=== PATIENT | male | born 1965 | race Caucasian/White ===

== ENCOUNTER 2016-10-28 12:15 | Emergency (ER) | payer BC, OTHER ==
[2016-10-28 12:24] VITALS: RESP 16; O2SAT 98
--- NOTE | 2016-10-28 13:19 | EDPHY ---
H & P Stated Complaint: +SOB & confusion ?Mast cell disorder HPI/ROS: CHIEF COMPLAINT: Possible allergic reaction HISTORY OF PRESENT ILLNESS: patient reports feeling hot and warm sensations of the skin, short of breath, confusion, itching. He says the symptoms are consistent with his previous reactions to unknown allergens. He has been under the care of an rail engineer /floral artist Dr. Dobbins for this. He says the symptoms started earlier today and have steadily improved since onset. Did not ever have any difficulty breathing or swelling of the mouth, lips or tongue. He had no chest pain. He did have some shortness of breath with this. He did not take anything and that has significantly improved at this time. He is requesting that we draw laboratory studies at the request of his floral artist. He does not want any medical intervention or other laboratory studies. He is resting comfortably with no active complaints. Has been under his care for 1 year without definitive diagnosis but is being worked up for mast cell disorder. No other associated complaints or modifying factors. REVIEW OF SYSTEMS: Ten systems reviewed and are negative unless otherwise noted in the HPI EXAMINATION General Appearance: Alert, no distress Head: normocephalic, atraumatic Eyes: Pupils equal and round, no conjunctival pallor or injection ENT, Mouth: Mucous membranes moist . Uvula midline. There is no edema of the lips, tongue or pharynx. The airway is patent. No erythema. Neck: Normal inspection, supple, non-tender Respiratory: Lungs are clear to auscultation . No wheezing, rhonchi or crackles Cardiovascular: Regular rate and rhythm. No murmur Gastrointestinal: Abdomen is soft and nontender Back: non-tender, no bony abnormalities Neurological: A&O, nonfocal, normal gait Skin: Warm and dry, no rash. No urticaria. No petechiae or purpura Extremities: Nontender, no pedal edema Psychiatric: Mood and affect normal DIFFERENTIAL DIAGNOSES: Including but not limited to muscle disorder, histamine response, acute allergic reaction, MDM: 1:20pm symptoms consistent with patient's previous allergic reactions. He has no outward signs of reaction. He has no edema or angioedema. His airway is patent. Vital signs are stable. He has declined Benadryl, Pepcid and steroids as he has those at home. He would just like the laboratory studies drawn though we have ordered. Would like to follow up his floral artist. Dr. Arana and I both discussed the case with his quick mixer operator, Dr. Dobbins. he said that he will be happy to follow up on the laboratory studies. The patient has been instructed to parental laboratory studies when they returned to take him to his appointment in 1-2 weeks. He is discharged home in stable condition with normal vital signs and no outward signs of allergic reaction. SUPERVISION:Patient was evaluated in conjunction with the supervising physician. Please see their note for details. Source: Patient Exam Limitations: No limitations - Personal History Current Tetanus/Diphtheria Vaccine: Unsure Current Tetanus Diphtheria and Acellular Pertussis (TDAP): Unsure - Medical/Surgical History Hx Asthma: No Hx Chronic Respiratory Disease: No Hx Diabetes: No Hx Cardiac Disease: No Hx Renal Disease: No Hx Cirrhosis: No Hx Alcoholism: No Hx HIV/AIDS: No Hx Splenectomy or Spleen Trauma: No Other PMH: Ortho surgeries, auto-immune problems - Social History Smoking Status: Never smoked Constitutional: Initial Vital Signs Temperature (C) 97.5 F 10/28/16 12:22 Heart Rate 74 10/28/16 12:22 Respiratory Rate 16 10/28/16 12:22 Blood Pressure 121/86 H 10/28/16 12:22 O2 Sat (%) 98 10/28/16 12:22 O2 Delivery Mode Room Air Allergies/Adverse Reactions: No Known Allergies Allergy (Unverified 01/17/16 17:05) Home Medications: Medication Instructions Recorded Pregnenolone, Micronized 01/17/16 [Pregnenolone Micronized] Medical Decision Making - Data Points Laboratory Results: Laboratory Results 10/28/16 13:15 10/28/16 13:15 10/28/16 13:15 WBC 4.47 10^3/uL (3.80-9.50) RBC 5.22 10^6/uL (4.40-6.38) Hgb 15.7 g/dL (13.7-17.5) Hct 45.8 % (40.0-51.0) MCV 87.7 fL (81.5-99.8) MCH 30.1 pg (27.9-34.1) MCHC 34.3 g/dL (32.4-36.7) RDW 12.3 % (11.5-15.2) Plt Count 190 10^3/uL (150-400) MPV 10.5 fL (8.7-11.7) Neut % (Auto) 62.2 % (39.3-74.2) Lymph % (Auto) 25.5 % (15.0-45.0) [place] % (Auto) 8.1 % (4.5-13.0) Eos % (Auto) 2.7 % (0.6-7.6) Baso % (Auto) 1.1 % (0.3-1.7) Nucleat RBC Rel Count 0.0 % (0.0-0.2) Absolute Neuts (auto) 2.78 10^3/uL (1.70-6.50) Absolute Lymphs (auto) 1.14 10^3/uL (1.00-3.00) Absolute Monos (auto) 0.36 10^3/uL (0.30-0.80) Absolute Eos (auto) 0.12 10^3/uL (0.03-0.40) Absolute Basos (auto) 0.05 10^3/uL (0.02-0.10) Absolute Nucleated RBC 0.00 10^3/uL (0-0.01) Immature Gran % 0.4 % (0.0-1.1) Immature Gran # 0.02 10^3/uL (0.00-0.10) Sodium 144 mEq/L (134-144) Potassium 4.0 mEq/L (3.5-5.2) Chloride 108 mEq/L (97-110) Carbon Dioxide 23 mEq/l (22-31) Anion Gap 13 mEq/L (8-16) BUN 10 mg/dL (7-23) Creatinine 0.8 mg/dL (0.7-1.3) Estimated GFR > 60 Glucose 96 mg/dL (70-100) Calcium 9.1 mg/dL (8.5-10.4) Tryptase Pending Plasma Histamine Pending Departure - Departure Disposition: Home, Routine, Self-Care Clinical Impression: Mast cell activation Condition: Good Instructions: Allergies (GEN) Additional Instructions: Follow-up with established physician to discuss the laboratory studies were ordered today. You will need to print and take those this to your appointment. Referrals: NONE *PRIMARY CARE P,. [Primary Care Provider] - As per Instructions Geo Dobbins MD [Medical Doctor] - As per Instructions
[2016-10-28 13:32] LABS: % IMMATURE GRANULYOCYTES 0.4 % (0.0-1.1); ABSOLUTE IMMATURE GRANULOCYTES 0.02 10^3/uL (0.00-0.10); ADD DIFF? NO; ADD MORPH? NO; ADD SCAN? NO; ATYPICAL LYMPHOCYTE FLAG 0 (0-99); FRAGMENT RBC FLAG 0 (0-99); HEMATOCRIT 45.8 % (40.0-51.0); HEMOGLOBIN 15.7 g/dL (13.7-17.5); LEFT SHIFT FLG 0 (0-99); LIPEMIA HEMOLYSIS FLAG 90 (0-99); MEAN CELL HEMOGLOBIN 30.1 pg (27.9-34.1); MEAN CELL HEMOGLOBIN CONCENTR. 34.3 g/dL (32.4-36.7); MEAN CELL VOLUME 87.7 fL (81.5-99.8); MEAN PLATELET VOLUME 10.5 fL (8.7-11.7); PLATELET CLUMPS FLAG 0 (0-99); PLATELET COUNT 190 10^3/uL (150-400); RED BLOOD CELL COUNT 5.22 10^6/uL (4.40-6.38); RED CELL DISTRIBUTION WIDTH 12.3 % (11.5-15.2)
[2016-10-28 13:49] VITALS: BP 118/82; PULSE 72; TEMP 97.3
[2016-10-28 13:49] LABS: ANION GAP 13 mEq/L (8-16); CALCIUM 9.1 mg/dL (8.5-10.4); CARBON DIOXIDE 23 mEq/l (22-31); CHLORIDE 108 mEq/L (97-110); CREATININE 0.8 mg/dL (0.7-1.3); GLOMERULAR FILTRATION RATE > 60; GLUCOSE 96 mg/dL (70-100); SODIUM 144 mEq/L (134-144)
[2016-11-01 15:32] LABS: HISTAMINE PLASMA 0.41 ng/mL (0-1.0)
== END 2016-10-28 13:48 | disposition home or self-care (01) ==
DX: D89.40 Mast cell activation, unspecified (principal)
CPT/HCPCS: 83088-90; 83520-90